=== PATIENT | female | born 1995 | race African-American/Black ===

== ENCOUNTER 2016-12-09 18:16 | Emergency (ER) | payer BC ==
[~2016-12-09] VITALS: Ht 167.6 cm; Wt 78.2 kg
[~2016-12-09 18:16] MED LIST: EQUALINE PRENATAL; IBU800 M1 PO; MARNATAL-F1 CAP PO; PERCOCET 325 MG1 TA2 PO; PROMETHAZINE12.5 M5 PO
[2016-12-09 19:06] LABS: INFLUENZA B NEGATIVE
[2016-12-09 19:26] LABS: PH 7 (5-8); SQUAMOUS EPITHELIAL 0-2 /hpf; URINE APPEARANCE Clear; URINE BACTERIA None Seen /hpf; URINE BILIRUBIN Negative (NEGATIVE); URINE BLOOD Negative (NEGATIVE); URINE COLOR Yellow; URINE GLUCOSE Negative (NEGATIVE); URINE KETONE Negative (NEGATIVE); URINE UROBILINOGEN Negative (NEGATIVE); URINE WBC 0-2 /hpf
[2016-12-09 20:22] LABS: MEAN CELL VOLUME 86 fl (80.0-95.0); MEAN CORPUSCULAR HGB CONC 33 g/dl (33.0-37.0); MEAN PLATELET VOLUME 11.8 fl (7.4-10.4); PLATELET COUNT 139 K/mm3 (130-400); RED BLOOD COUNT 4.02 M/mm3 (4.10-5.30); REDCELL DISTRIBUTION WIDTH-CV 11.9 % (11.5-14.5); WHITE BLOOD COUNT 9.1 K/mm3 (4.8-10.8)
[2016-12-09 20:25] LABS: HEMATOCRIT 34.5 % (35.0-45.0); HEMOGLOBIN 11.5 g/dl (12.0-15.0); MEAN CORPUSCULAR HEMOGLOBIN 29 pg (26.0-32.0)
[2016-12-09 20:26] LABS: ADD PATHOLOGY DIFF REVIEW NO
[2016-12-09 20:49] LABS: ADJUSTED CALCIUM 8.6 mg/dL (8.4-10.2); BILIRUBIN,TOTAL 1.9 mg/dL (0.0-1.0); CALCIUM 8.6 mg/dL (8.4-10.2); CREATININE, serum 0.76 mg/dL (0.52-1.25); POTASSIUM 3.5 mmol/L (3.4-5.0); TOTAL PROTEIN 7.8 gm/dL (6.4-8.2)
[2016-12-09 20:53] LABS: BAND 34 % (0-10); NEUTROPHILS 29 % (42.0-75.2); PLATELET ESTIMATE NORMAL (NORMAL); TOTAL CELLS COUNTED 100
[2016-12-09 21:13] VITALS: BP 114/75; PULSE 100; TEMP 99
[2016-12-09] MEDS ORDERED: TAMIFLU 75MG75 MG PO (21:13)
== END 2016-12-09 21:26 | disposition home or self-care (01) ==
LOC: COL.ER 18:16
PROVIDERS: Emergency Medicine
DX: J11.1 Influenza due to unidentified influenza virus with other respiratory manifestations (principal)
CPT/HCPCS: J1885; J7030